=== PATIENT | male | born 1995 | race Caucasian/White ===

== ENCOUNTER 2018-08-06 14:11 | Outpatient (CLI) | payer OTHER ==
[~2018-08-06] VITALS: Ht 182.9 cm; Wt 66.7 kg
== END 2018-08-06 14:25 | disposition home or self-care (01) ==
LOC: OFIC 805 14:11
DX: H61.23 Impacted cerumen, bilateral (principal); R22.1 Localized swelling, mass and lump, neck; J30.89 Other allergic rhinitis